=== PATIENT | male | born 1975 | race Caucasian/White ===

== ENCOUNTER 2016-09-14 10:41 | Inpatient (IN) | payer OTHER ==
[~2016-09-14] VITALS: Ht 177.8 cm; Wt 104.9 kg
[2016-09-14] MEDS ORDERED: SODIUM CHLORIDE 0.9% 1,000 ML IV ONE ×2 (11:17→14:55)
[2016-09-14] MEDS ORDERED: SODIUM CHLORIDE 0.9% 1,000ML IVBOLUS ONE (11:30)
[2016-09-14] MEDS ORDERED: HYDROmorphone 1 MG/ML, 1ML IVPush PRN ×3 (11:30→21:00)
[2016-09-14] MEDS ORDERED: SODIUM CHLORIDE FLUSH 10ML SYR IVF ONE ×2 (11:30→16:00)
[2016-09-14] MEDS ORDERED: ONDANSETRON 2MG/ML, 2ML IVPush ONE (11:30)
[2016-09-14] MEDS ORDERED: ONDANSETRON 2MG/ML, 2ML ONE ×2 (11:48→19:33)
[2016-09-14] MEDS ORDERED: HYDROmorphone 1 MG/ML, 1ML ONE (11:48)
[2016-09-14 12:12] LABS: BLOOD UREA NITROGEN 12 mg/dL (7-18)
[2016-09-14 12:16] LABS: ASPARTATE AMINO TRANSFERASE 258 U/L (15-37)
[2016-09-14] MEDS ORDERED: ONDANSETRON 2MG/ML, 2ML IVPush PRN ×3 (15:00→20:00)
[2016-09-14] MEDS ORDERED: SODIUM CHLORIDE 0.9% 1,000 ML IV SCH (15:09)
[2016-09-14] MEDS ORDERED: PROMETHAZINE 25 MG/ML, 1ML IM PRN (15:30)
[2016-09-14] MEDS ORDERED: ACETAMINOPHEN 325 MG TABLET PO PRN ×2 (15:30→20:00)
[2016-09-14] MEDS ORDERED: ONDANSETRON ODT 4 MG PO PRN (15:30)
[2016-09-14] MEDS ORDERED: MORPHINE SULFATE 4 MG/ML, 1ML IVPush PRN ×2 (15:30→20:30)
[2016-09-14] MEDS ORDERED: FENTANYL PF 250 MCG/5ML ONE (19:17)
[2016-09-14] MEDS ORDERED: MIDAZOLAM 1 MG/ML, 2ML ONE (19:17)
[2016-09-14] MEDS ORDERED: BUPIVACAINE/PF 0.5% ONE (19:24)
[2016-09-14] MEDS ORDERED: EPINEPHRINE 1 MG/ML, 1ML ONE (19:24)
[2016-09-14] MEDS ORDERED: ROCURONIUM 10 MG/ML ONE (19:33)
[2016-09-14] MEDS ORDERED: PROPOFOL 10 MG/ML, 20ML ONE (19:33)
[2016-09-14] MEDS ORDERED: NEOSTIGMINE 1 MG/ML, 10ML ONE (19:33)
[2016-09-14] MEDS ORDERED: CEFOTETAN 2 GM ONE (19:33)
[2016-09-14] MEDS ORDERED: KETOROLAC 30 MG/1 ML ONE (19:33)
[2016-09-14] MEDS ORDERED: DEXAMETHASONE 4 MG/ML, 1ML ONE (19:33)
[2016-09-14] MEDS ORDERED: GLYCOPYRROLATE 0.2MG/1ML ONE (19:33)
[2016-09-14] MEDS ORDERED: LABETALOL 5MG/ML, 20ML IV PRN (20:00)
[2016-09-14] MEDS ORDERED: MIDAZOLAM 1 MG/ML, 2ML IV PRN (20:00)
[2016-09-14] MEDS ORDERED: PROMETHAZINE 25 MG/ML, 1ML IV PRN (20:00)
[2016-09-14] MEDS ORDERED: HYDROmorphone 1 MG/ML, 1ML IV PRN ×2 (20:00→20:30)
[2016-09-14] MEDS ORDERED: METOCLOPRAMIDE 5 MG/ML, 2ML IV PRN (20:00)
[2016-09-14] MEDS ORDERED: hydrALAzine 20 MG/ML, 1ML IV PRN (20:00)
[2016-09-14] MEDS ORDERED: ALBUTEROL/IPRATROPIUM 2.5MG/0.5MG, 3 ML NPPB PRN (20:00)
[2016-09-14] MEDS ORDERED: MEPERIDINE/PF 25MG/0.5ML IVPush PRN (20:00)
[2016-09-14] MEDS ORDERED: OXYcodone 5 MG/5 ML ORAL.SOL UDC PO PRN (20:00)
[2016-09-14] MEDS ORDERED: OXYcodone 5 MG/5 ML ORAL.SOL UDC ONE (20:26)
[2016-09-14] MEDS ORDERED: HYDROcodone/APAP 5/325 TABLET PO PRN (20:30)
[2016-09-14] MEDS ORDERED: FENTANYL PF 100 MCG/2ML ONE (20:44)
[2016-09-14] MEDS: FENTANYL PF 100 MCG/2ML IV PRN ×2 (20:45→20:55)
[2016-09-15 02:56] VITALS: BP 121/78
[2016-09-15 05:35] LABS: ASPARTATE AMINO TRANSFERASE 216 U/L (15-37); BLOOD UREA NITROGEN 10 mg/dL (7-18)
[2016-09-15 08:26] VITALS: BP 120/77
[2016-09-15 15:39] VITALS: BP 145/74
[2016-09-15 20:00] VITALS: BP 118/70
[2016-09-16 01:35] VITALS: BP 113/76
[2016-09-16 05:19] LABS: BLOOD UREA NITROGEN 11 mg/dL (7-18)
[2016-09-16 05:24] LABS: ASPARTATE AMINO TRANSFERASE 167 U/L (15-37)
[2016-09-16 06:42] VITALS: BP 145/77
[2016-09-16] MEDS ORDERED: TRAM50TA2 PO (09:33)
[2016-09-16 10:31] VITALS: BP 129/90
== END 2016-09-16 12:00 | disposition home or self-care (01) | DRG 419 ==
LOC: ED 13:51 → EDIP 14:55 → 4NOR 17:39
PROVIDERS: ADMIT Hospitalist; ATTEND Family Medicine
PROC: 0FT44ZZ Resection of Gallbladder, Percutaneous Endoscopic Approach (ICD-10-PCS; principal; 2016-09-14 19:30)
DX: K80.00 Calculus of gallbladder with acute cholecystitis without obstruction (principal); K08.409 Partial loss of teeth, unspecified cause, unspecified class; Z87.891 Personal history of nicotine dependence; Z82.49 Family history of ischemic heart disease and other diseases of the circulatory system; Z80.7 Family history of other malignant neoplasms of lymphoid, hematopoietic and related tissues
CPT/HCPCS: 36415; 74181; 76700; 80053; 81003; 83690; 85025; 88304; 96360; 96361; J0171; J1100; J1885; J2250; J2405; J2704; J2710; J3010; J3490; J7030; S0074